=== PATIENT | female | born 1970 | race Caucasian/White ===

== ENCOUNTER 2022-07-24 09:35 | Outpatient (CLI) | payer OTHER, SELFPAY ==
[2022-07-24 18:48] LABS: Basophils Absolute Auto 0.1 K/mm3 (0.0-0.1); Basophils Percent Auto 1.5 % (0.2-1.2); Eosinophils Absolute Auto 0.1 K/mm3 (0-0.3); Hematocrit 43.6 % (37.0-47.0); Hemoglobin 13.7 g/dL (12.0-15.0); Immature Granulocyte Absolute 0.02 K/mm3 (0.00-0.031); Immature Granulocyte Percent A 0.3 % (0-0.5); Lymphocytes Absolute Auto 2.13 K/mm3 (0.9-3.2); Lymphocytes Percent Auto 34.6 % (18.3-44.2); Mean Corpuscular HGB Conc 31.4 g/dl (32-36); Mean Corpuscular Hemoglobin 30.3 pg (26-34); Mean Corpuscular Volume 96.5 fl (80-100); Mean Platelet Volume 11.2 fl (7.4-10.4); Monocytes Absolute Auto 0.6 K/mm3 (0.1-0.6); Monocytes Percent Auto 9.6 % (2.6-8.5); Neutrophils Absolute Auto 3.2 K/mm3 (1.3-6.7); Platelet Count Result 304 k/mm3 (150-375); Red Blood Count 4.52 M/mm3 (4.2-5.4); Red Cell Distribution Width 14.1 % (11.5-14.5); White Blood Count 6.2 K/mm3 (4.5-10.0)
[2022-07-24 18:57] LABS: Alanine Aminotransferase 20 U/L (6-35); Albumin Level 4.7 g/dL (3.5-5.1); Alkaline Phosphatase 57 U/L (38-126); Anion Gap 10 mmol/L (8-16); Aspartate Amino Transferase 64 U/L (14-36); Bilirubin,Total 0.6 mg/dL (0.2-1.3); Blood Urea Nitrogen 13 mg/dL (7-17); Calcium 9.3 mg/dL (8.4-10.2); Carbon Dioxide 30 mmol/L (22-30); Chloride 96 mmol/L (98-107); Cholesterol 136 mg/dL (0-200); Estimated Glomerular Filt Rate > 60; Glucose 88 mg/dL (65-110); HDL Direct 61 mg/dL; Magnesium 1.9 mg/dL (1.6-2.3); Potassium 4.3 mmol/L (3.4-5.0); Sodium 136 mmol/L (137-145); Triglycerides 54 mg/dL (<150)
[2022-07-24 19:08] LABS: LDL Cholesterol Direct 53 mg/dL
[2022-07-24 19:24] LABS: Thyroid Stimulating Hormone Reflex 0.503 uIU/mL (0.465-4.68)
== END 2022-07-24 09:36 | disposition home or self-care (01) ==
LOC: ANHBWCLAB 09:38
PROVIDERS: PCP Family Medicine; Visit Provider Internal Medicine Cardiovascular Disease
DX: E78.5 Hyperlipidemia, unspecified (principal); I10 Essential (primary) hypertension; I25.10 Atherosclerotic heart disease of native coronary artery without angina pectoris; R00.2 Palpitations
CPT/HCPCS: 36415; 80053; 80061; 83735; 84443; 85025

== ENCOUNTER 2024-12-21 08:04 | Outpatient (CLI) | payer BC, SELFPAY ==
--- OUTSIDE RECORDS SUMMARY | 2024-12-21 08:19 | XMS_ITS | Clinical Summary ---
Author Organization [facility] Address [address] [place] [address] Phone Care Team Providers Care Heliotherapist Name Role Phone Jennifer Limon MD Primary Care Provider [phone] Family History Medical History Relation Name Comments Diabetes Father Alzheimer's Disease Mother Heart Disease Mother Cancer Sister x1 Heart Disease Sister x1 Relation Name Status Comments Father Alive Mother Alive Sister x1 Social History Tobacco Use Types Packs/Day Years Used Date Smoking Tobacco: Never Smokeless Tobacco: Never Tobacco Cessation:Counseling Given: Not Answered Alcohol Use Standard Drinks/Week Comments Yes 0 (1 standard drink = 0.6 oz pure alcohol) 7 drinks a week (seltzor) or mixed drinks PHQ-2 Answer Date Recorded Total Score - Questions 1-9 5 11/13 Sexually Active Control Partners Comments Yes Male Comments No Sex and Gender Information Value Date Recorded Sex Assigned at Female 10/20/2023 10:41 AM AFFIRMATIVE ACTION OFFICER Legal Sex Female 12:29 AM CDT Gender Identity Female 10/20/2023 10:41 AM AFFIRMATIVE ACTION OFFICER Sexual Orientation Not on file Plan of Treatment Health Maintenance Due Date Last Done Comments Hepatitis C Virus (HCV) Screening 1969 Hepatitis B Immunization (1 of 3 - 19+ 3-dose series) 1988 Pap Smear 1990 Cervical Cancer Screening (CCS) 1999 HPV/Cotest 1999 Colonoscopy 2014 Colorectal Cancer Screening 2014 Mammogram 09/30/2018 09/30/2017, 0 05/2017, 08/25/2015 Cologuard 2019 Immunochemical Fecal Occult Blood 2019 Pneumococcal Immunization (50+ years) (1 of 1 - PCV) 2019 Zoster Immunization (1 of 2) 2019 Influenza Immunization (#1) 05/16/202406/15, 06/19/2020, 06/27/2018, Additional history exists SARS-COV-2 Immunization ( season) 2024 09/18/2021, 12/18/2020, 11/26/2020 Respiratory Syncytial Virus (RSV) Immunization (Adult) (1 - 1-dose 75+ series) 2044 DTaP/Tdap/Td Immunization Discontinued 2008, 03/03/1979, 02/13/1974, Additional history exists TdaP Immunization Completed 03/15/2009, 03/03/1979 Meningococcal Immunization (ACWY) Aged Out No longer eligible based on patient's age to complete this topic Rotavirus Immunization Aged Out No lo nger eligible based on patient's age to complete this topic Goals Goal Patient Goal Type Associated Problems Recent Progress Patient-Stated? Author I need some boundaries Behavioral Health Yes Lety Cooley, BRICK OFFBEARER Note: Goal/Objective: Chula would like to create some boundaries for herself so she does not give everything of herself away .. Anticipated Time Frame for Goal Completion: 6 months Goal Reviewed with: patient Readiness to change: Ready to change Department associated with goal: [facility] Steps to achieve goal: will identify at least two warning signs self care is being neglected. will identify at least two boundaries that may help to improve opportunities for self-care. will identify at least two ways/skills/habits of self-care believed to have a positive outcome on overall wellbeing. will implement at least two changes (boundaries and/or skills/habits of self- care). Will attend at least 1x monthly, at least 6 individual or group sessions Procedures Procedure Name Priority Date/Time Associated Diagnosis Comments GURPREET SCREENING BILATERAL DIGITAL W CAD Routine 08/25/2015 1:20 PM AFFIRMATIVE ACTION OFFICER Visit for screening mammogram from Last 3 Months or Most Recently Relevant to Health Maintenance Results * GURPREET SCREENING BILATERAL DIGITAL W CAD (08/25/2015 1:20 PM AFFIRMATIVE ACTION OFFICER) Anatomical Region Laterality Modality breast Bilateral Mammography 08/25/2015 12:5 7 PM AFFIRMATIVE ACTION OFFICER Narrative 08/25/2015 4:11 PM AFFIRMATIVE ACTION OFFICER Courtesy copy provided at patient's request. Patient is self-referred. - GURPREET SCREENING BILATERAL DIGITAL W CAD BILATERAL DIGITAL SCREENING MAMMOGRAM WITH CAD WITH MEDIOLATERAL OBLIQUE CRANIOCAUDAL: 08/25/2015 The study was acquired using digital technology and interpreted from soft copy. Current study was also evaluated with ICAD version 7.2. CLINICAL: Routine screening. Patient has no complaints. No personal history of cancer. No family history of breast cancer. COMPARISONS: Comparison is made to exams dated: 08/12/2014, 08/05/2013, and 07/23/2012 [facility]. BREAST TISSUE:The tissue of both breasts is extremely dense, which lowers the sensitivity of mammography. FINDINGS: No significant masses, calcifications, or other findings are seen in either breast. There has been no significant interval change. IMPRESSION: BI-RAD 1 NEGATIVE There is no mammographic evidence of malignancy. A 1 year screening mammogram is recommended. The patient has been or will be contacted. The patient will be entered into an automated reminder system to schedule a mammogram in one year. Electronically signed by: Yahaira Anderson M.D. pw/brandon:08/25/2015 14:55:57 Lease Examiner: Mariel DUNN(Maricel)(Len), [facility] letter sent: Normal Exam Reading location: [facility] BI-RADS: 1 Negative Procedure Note Yahaira Anderson MD - 08/25/2015 Courtesy copy provided at patient's request. Patient is self-referred. - GURPREET SCREENING BILATERAL DIGITAL W CAD BILATERAL DIGITAL SCREENING MAMMOGRAM WITH CAD WITH MEDIOLATERAL OBLIQUE CRANIOCAUDAL: 08/25/2015 The study was acquired using digital technology and interpreted from soft copy. Current study was also evaluated with ICAD version 7.2. CLINICAL: Routine screening. Patient has no complaints. No personal history of cancer. No family history of breast cancer. COMPARISONS: Comparison is made to exams dated: 08/12/2014, 08/05/2013, and 07/23/2012 [facility]. BREAST TISSUE:The tissue of both breasts is extremely dense, which lowers the sensitivity of mammography. FINDINGS: No significant masses, calcifications, or other findings are seen in either breast. There has been no significant interval change. IMPRESSION: BI-RAD 1 NEGATIVE There is no mammographic evidence of malignancy. A 1 year screening mammogram is recommended. The patient has been or will be contacted. The patient will be entered into an automated reminder system to schedule a mammogram in one year. Electronically signed by: Yahaira domínguez/brandon:08/25/2015 14:55:57 Lease Examiner: Mariel DUNN(Maricel)(Len), [facility] letter sent: Normal Exam Reading location: [facility] BI-RADS: 1 Negative Jennifer Limon MD IMG MAMMO ORDERABLES Final Res ult from Last 3 Months or Most Recently Relevant to Health Maintenance Insurance [facility] Care Teams Heliotherapist Relationship Specialty Start Date End Date Jennifer Limon MD [address] [place] [address] PCP - General Internal Medicine 08/14/15
--- OUTSIDE RECORDS SUMMARY | 2024-12-21 08:19 | XMS_ITS | Encounter Summary ---
Author Organization [facility] Healthcare Address [address] [place] [address] Care Team Providers Care Motorized Squad Commanding Officer Name Role Phone Nagi Gonzáles MD Primary Care Provider [phone] Reason for Visit * Reason Onset Date Comments Scheduling Appointments 02/27/2021 confirmi ng mammogram appt- no answer Encounter Details Date Type Department Care Team (Late st Contact Info) Description 02/27/2021 Telephone [facility] [address] [place] [address] [id number] Scheduling Appointments (confirming mammogram appt- no answer) Social History Tobacco Use Types Packs/Day Years Used Date Smoking Tobacco: Never Smokeless Tobacco: Never Alcohol Use Standard Drinks/Week Comments Yes 0 (1 standard drink = 0.6 oz pur e alcohol) PHQ-2 Answer Date Recorded PHQ-2 Total Score (If total score is 3 or more points, staff should administer the PHQ-9) 0 01/03/2021 Comments No Sex and Gender Information Value Date Recorded Sex Assigned at Not on file Legal Sex Female 11:56 PM SEATING UPHOLSTERER Gender Identity Not on file Sexual Orientation Not on file documented as of this encounter Plan of Treatment Not on file documented as of this encounter Visit Diagnoses Not on filedocumented in this encounter Care Teams Motorized Squad Commanding Officer Relationship Specialty Start Date End Date Nagi Gonzáles MD [address] [place] [address] PCP - General 03/04/20 documented as of this encounter
--- OUTSIDE RECORDS SUMMARY | 2024-12-21 08:19 | XMS_ITS | Clinical Summary ---
Author Organization [facility] Address [address] [place] [address] Care Team Providers Care Community Nutrition Educator Name Role Phone Nagi Gonzáles MD Primary Care Provider [phone] Allergies Active Allergy Reactions Criticality Noted Date Comments Sulfa (Sulfonamide Antibiotics) Rash Medium Medications coenzyme Q10 10 mg capsule otc 0 0 6 Active Additional Information Patient not taking.Reported on 06/18/2023 multivitamin capsule take 1 capsule by oral route every day 0 1 Active rosuvastatin (CRESTOR) 20 mg tablet TK 1 T PO QHS 2 9 Active rimegepant (NURTEC ODT) tablet,disinteg rating Take 1 tablet (75 mg total) by mouth daily as needed (migraine) 10 tablet 11 2 Active Additional Information Patient not taking.Reported on 06/18/2023 hydrOXYzine (ATARAX) 25 mg tablet TAKE 1 TABLET(25 MG) BY MOUTH EVERY 6 HOURS NEEDED FOR ITCHING 30 tablet 2 Active Additional Information Patient not taking.Reported on 06/18/2023 carvediloL (COREG) 6.25 mg tablet Take 1 tablet (6.25 mg total) by mouth 2 (two) times a day with meals 3 Active neomycin-polymy mesha-gramicidin (NEOSPORIN) ophthalmic solution Administer 2 drops into both eyes 4 (four) times a day 10 mL [address] (CYMBALTA) 60 mg capsule TAKE 1 CAPSULE(60 MG) BY MOUTH DAILY 90 capsule 3 4 Active amoxicillin (AMOXIL) 875 mg tablet Take 1 tablet (875 mg total) by mouth 2 (two) times a day 20 tablet 4 Active Active Problems Problem Noted Date Diagnosed Date Migraine without aura and wi thout status migrainosus, not intractable 03/23/2018 Insomnia 01/29/2014 Overview (12/20/2016): Insomnia Ventricular premature beats 08/01/2013 Overview (12/18/2016): PVC (premature ventricular contraction) Mitral valve prolapse 08/01/2013 Overview (12/20/2016): Mitral valve prolapse Encounters Date Type Department Care Team Description 12/06/2024 Telephone [employer] 4 [facility] [address] [place] [id number] Mariel Sands MD from Last 3 Months Immunizations Immunization Administration Dates Next Due DTP 02/13/1974, 1,1969,09/15,1969 Influenza, Quadrivalent, Linn l Culture-based MDCK, Preservative Free, Antibiotic Free, Intramuscular 06/28/2018 Influenza, Quadrivalent, Spl it, Intramuscular 08/15/2015 Influenza, Quadrivalent, Spl it, Preservative Free, Intradermal 07/20/2016 Influenza, Quadrivalent, Spl it, Preservative Free, Intramuscular 08/15/2017,07/19/2016 Influenza, Trivalent, IM (MDV) 06/18/2014,2012 Influenza, Trivalent, Preser vative Free, Intramuscular 09/05/2015 Influenza, Unspecified 02/26/2023(Deferr ed: Patient Refused),05/16/2022(Deferred: Patient Refused),01/03/2021(Deferred: Patient Refused),09/15/2019(Deferred: Patient Refused),06/27/2018 MMR 09/22/2001,09/22/2001 Measles 03/15/1972 Mumps 11/13/1970 OPV 04/18/1980, 4,03/15/1971,02/13,1969 Rubella 05/16/1970 Tdap 03/15/2009,03/15/2009,03/03/1979 Surgical History Surgery Date Site/Laterality Comments SECTION 09/15/2007 - 09/14/2008 OTHER SURGICAL HISTORY er heart flutters panic attack Medical History Medical History Date Comments Depression Depression Headache Headaches; Comme nts: Tension Intractable chronic migraine without aura and without status migrainosus Intractable chroni c migraine without aura and without status migrainosus - (Added by TW Conv) CAD (coronary artery disease) Family History Medical History Relation Name Comments Diabetes Father Diabetes mellit us; Alzheimer's disease Mother Heart attack Mother myocardial infa rction; Sleep apnea Mother Other Sister 2 Alive and well; Relation Name Status Comments Father Mother Alive Sister 1 Alive Sister 2 Social History Tobacco Use Types Packs/Day Years Used Date Smoking Tobacco: Never Smokeless Tobacco: Never Tobacco Cessation:Counseling Given: Not Answered Alcohol Use Standard Drinks/Week Comments Yes 0 (1 standard drink = 0.6 oz pur e alcohol) Humiliation, Afraid, Rape, and Kick questionnair e Answer Date Recorded Within the last year, have y ou been afraid of your partner or ex-partner? No 01/29/2023 Within the last year, have y ou been humiliated or emotionally abused in other ways by your partner or ex-partner? No Within the last year, have y ou been kicked, hit, slapped, or otherwise physically hurt by your partner or ex-partner? No 01/29/2023 Within the last year, have y ou been raped or forced to have any kind of sexual activity by your partner or ex-partner? No 01/29/2023 Social Connection and Isolat ion Panel [NHANES] Answer Date Recorded In a typical week, how many times do you talk on the phone with family, friends, or neighbors? More than three times a week 01/29/2023 How often do you get togethe r with friends or relatives? More than three times a week 01/29/2023 How often do you attend [facility] or anabaptist services? Never 01/29/2023 Do you belong to any clubs o r organizations such as zoroastrian groups, unions, fraternal or athletic groups, or school groups? Yes 01/29/2023 How often do you attend meet ings of the clubs or organizations you belong to? More than 4 times per year 01/29/2023 Are you , , di vorced, , never , or living with a partner? 01/29/2023 AUDIT-C Answer Date Recorded Q1: How often do you have a drink containing alc ohol? 2-4 times a month 01/29/2023 Q2: How many drinks containi ng alcohol do you have on a typical day when you are drinking? 1 or 2 01/29/2023 Q3: How often do you have si x or more drinks on one occasion? Never 01/29/2023 Overall Financial Resource Strain (CARDIA) Answe r Date Recorded How hard is it for you to pa y for the very basics like food, housing, medical care, and heating? Not hard at all 01/29/2023 PHQ-2 Answer Date Recorded PHQ-2 Total Score (If total score is 3 or more points, staff should administer the PHQ-9) 0 01/29/2023 [facility] - Occupational Stress Questionnaire Answer Date Recorded Do you feel stress - tense, restless, nervous, or anxious, or unable to sleep at night because your mind is troubled all the time - these days? To some extent 01/29/2023 Exercise Vital Sign Answer Date Recorde d On average, how many days pe r week do you engage in moderate to strenuous exercise (like a brisk walk)? 3 days 01/29/2023 On average, how many minutes do you engage in exercise at this level? 90 min 01/29/2023 Hunger Vital Sign Answer Date Recorded Within the past 12 months, y ou worried that your food would run out before you got the money to buy more. Never true 01/30/20 23 Within the past 12 months, t he food you bought just didn't last and you didn't have money to get more. Never true 01/29/2023 PRAPARE - Transportation Answer Date Re corded In the past 12 months, has l ack of transportation kept you from medical appointments or from getting medications? No 01/13 In the past 12 months, has l ack of transportation kept you from meetings, work, or from getting things needed for daily living? No 01/29/2023 Housing Stability Vital Sign Answer Kishore e Recorded In the last 12 months, was t here a time when you were not able to pay the mortgage or rent on time? No 01/29/2023 In the last 12 months, how many places have you lived? 1 01/29/2023 In the last 12 months, was t here a time when you did not have a steady place to sleep or slept in a senior care (including now)? No 01/29/2023 Comments No Sex and Gender Information Value Date Recorded Sex Assigned at Not on file Legal Sex Female 11:56 PM DRY CANS OPERATOR Gender Identity Not on file Sexual Orientation Not on file Obstetrics History Para Term AB IAB SAB Ectopic Multiple Livin g Live Births 1 1 1 Date Outcome GA Total Labor Labor/2nd/3rd Weight Sex Type Anes PTL Yola A1 A5 Name Clin Term Last Filed Vital Signs Vital Sign Reading Time Taken Comments Blood Pressure 154/83 06/18/2023 8:37 AM CDT Pulse 121 06/18/2023 8:37 AM CDT Temperature 36.9 C (98.4 F) 06/18/2023 8:37 AM CDT Respiratory Rate 18 01/29/2023 11:40 AM CDT Oxygen Saturation 97% 06/18/2023 8:37 AM CDT Inhaled Oxygen Concentration - - Weight 59.9 kg (132 lb) 06/18/2023 8:37 AM CDT Height 162.6 cm (5' 4 ) 06/18/2023 8:37 AM CDT Body Mass Index 22.66 06/18/2023 8:37 AM CDT Plan of Treatment Health Maintenance Due Date Last Done Comments Cervical Cancer Screening 1969 Colon Cancer Screening-Colonoscopy 1969 Hepatitis C Screening 1969 Hepatitis B Screening 1987 Regular Well Visit/Exam 18-64 1987 Breast Cancer Screening-Mammogram 09/30/2018 09/30/2017, 09/23/2016 DTaP/Tdap/Td Vaccine (8 - Td or Tdap) 03/15/2019 03/15/2009, 03/15/2009, 03/03/1979, Additional history exists Zoster Vaccine (1 of 2) 2019 Depression Screening 01/30/2024 01/29/2023, 01/29/2023, 01/03/2021 Influenza Vaccine (#1) 2024 8, 06/27/2018, 08/15/2017, Additional history exists Pneumococcal vaccine <65 Aged Out No longer eligible based on patient's age to complete this topic Procedures Procedure Name Priority Date/Time Associated Diagnosis Comments SCREENING MAMMOGRAM BILATERAL W MARIAM Schedule Routine, Read Routine (OP Routine) 09/30/2017 5:17 PM DRY CANS OPERATOR Screening breast examination from Last 3 Months or Most Recently Relevant to Health Maintenance Results * Screening Mammogram Bilateral W Mariam (09/30/2017 5:17 PM DRY CANS OPERATOR) Anatomical Region Laterality Modality Breast Bilateral Mammography Impressions 10/01/2017 7:05 AM DRY CANS OPERATOR 1. NO DEFINITIVE MAMMOGRAPHIC EVIDENCE OF MALIGNANCY 2. ANNUAL FOLLOW-UP RECOMMENDED BI-RADS 1 Electronically signed by: Babar aMrin M.D. Narrative 10/01/2017 7:05 AM DRY CANS OPERATOR SCREENING MAMMOGRAM BILATERAL W MARIAM HISTORY: Encounter for screening mammogram for malignant neoplasm of breast TECHNIQUE: 3 views of each breast were obtained with bilateral breast tomosynthesis. COMPARISON: 09/23/2016 FINDINGS: The breasts are heterogeneously dense. No suspicious mass or calcification is seen to suggest mammographic evidence of malignancy. Digital technology was employed plus computer aided detection software (R2) was utilized in interpretation of these images. This facility utilizes a reminder system to notify patient's of yearly mammograms. Procedure Note Babar Marin MD / Provider, MD Tete - 10/01/2017 SCREENING MAMMOGRAM BILATERAL W MARIAM HISTORY: Encounter for screening mammogram for malignant neoplasm of breast TECHNIQUE: 3 views of each breast were obtained with bilateral breast tomosynthesis. COMPARISON: 09/23/2016 FINDINGS: The breasts are heterogeneously dense. No suspicious mass or calcification is seen to suggest mammographic evidence of malignancy. Digital technology was employed plus computer aided detection software (R2) was utilized in interpretation of these images. This facility utilizes a reminder system to notify patient's of yearly mammograms. IMPRESSION: 1. NO DEFINITIVE MAMMOGRAPHIC EVIDENCE OF MALIGNANCY 2. ANNUAL FOLLOW-UP RECOMMENDED BI-RADS 1 Electronically signed by: Babar Marin M.D. Nahomy Mcmanus MD IMG MAMMO PROCEDURES Fin al Result from Last 3 Months or Most Recently Relevant to Health Maintenance Insurance [place] [address] [id number] [place] [address] [employer] Care Teams Community Nutrition Educator Relationship Specialty Start Date End Date Nagi Gonzáles MD [address] [place] [address] PCP - General 03/04/20
--- OUTSIDE RECORDS SUMMARY | 2024-12-21 08:19 | XMS_ITS | Referral Summary ---
Author Organization [facility] Address [address] [place] [address] Care Team Providers Care Clinic Business Manager Name Role Phone Nagi Gonzáles MD Primary Care Provider [phone] Encounters Date Type Department Care Team Description 12/06/2024 Telephone [facility] 4 [facility] [address] [place] [address] Mariel Sands MD from Last 3 Months Allergies Active Allergy Reactions Criticality Noted Date [...] prolapse 08/01/2013 Overview (12/20/2016): Mitral valve prolapse Immunizations Immunization Administration Dates Next Due DTP [...] OPV 04/18/1980, 4,03/15/1971,02/13,1969 Rubella 05/16/1970 Tdap 03/15/2009,03/15/2009,03/03/1979 Social History Tobacco Use Types Packs/Day Years [...] week 01/29/2023 How often do you attend chur or confucianist services? Never 01/29/2023 Do you belong to any clubs o r organizations such as religion groups, unions, fraternal or athletic groups, or [...] staff should administer the PHQ-9) 0 [facility]/29/[address] [facility] - Occupational Stress Questionnaire Answer Date Recorded [...] place to sleep or slept in a custodial (including now)? No 01/29/2023 Comments No Sex and Gender Information Value Date Recorded Sex Assigned at Not on file Legal Sex Female 11:56 PM ENAMEL PULVERIZER Gender Identity Not on file Sexual Orientation Not on file Last Filed Vital Signs Vital Sign Reading [...] 06/18/2023 8:37 AM CDT Plan of Treatment Not on file Procedures Procedure Name Priority Date/Time Associated Diagnosis Comments SCREENING MAMMOGRAM BILATERAL W MARIAM Schedule Routine, Read Routine (OP Routine) 09/30/2017 5:17 PM ENAMEL PULVERIZER Screening breast examination from Last 3 Months or Most Recently Relevant to Health Maintenance Results * Screening Mammogram Bilateral W Mariam (09/30/2017 5:17 PM ENAMEL PULVERIZER) Anatomical Region Laterality Modality Breast Bilateral Mammography Impressions 10/01/2017 7:05 AM ENAMEL PULVERIZER 1. NO DEFINITIVE MAMMOGRAPHIC EVIDENCE OF MALIGNANCY 2. ANNUAL FOLLOW-UP RECOMMENDED BI-RADS 1 Electronically signed by: Babar Marin M.D. Narrative 10/01/2017 7:05 AM ENAMEL PULVERIZER SCREENING MAMMOGRAM BILATERAL W MARIAM HISTORY: Encounter [...] Most Recently Relevant to Health Maintenance Insurance [facility] [id number] [place] [address] [facility] Care Teams Clinic Business Manager Relationship Specialty Start Date End Date Nagi Gonzáles MD [address] [place] [address] PCP - General 03/04/20
--- OUTSIDE RECORDS SUMMARY | 2024-12-21 08:20 | XMS_ITS | Clinical Summary ---
Author Organization [email or web address] Address [address] [place] [address] Care Team Providers Care Textile Screen Printer Name Role Phone Jennifer Limon MD Primary Care Provider [phone] Source Comments [email or web address],non-owned Affiliates and Associated Physician Practices is amultiple site organization consisting of ambulatory clinics and hospital sitesin [place], [place], [place] and [place]. This disclosure is being madepursuant to the Care Everywhere program and may not contain all information available regarding this patient. Last updated [email or web address] Allergies Active Allergy Reactions Criticality Noted Date Comments Sulfa Drugs Other Medium 08/18/2017 Unknown reaction as child Medications * Be aware that medications may not be up to date on this document. Alwaysverify current medications with the patient. 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 Respiratory Rate - - Oxygen Saturation 98% 10/29/2017 2:23 PM 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 Inhaled Oxygen Concentration - - Weight 63.5 kg (140 lb) 10/29/2017 2:23 PM 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 Height 167.6 cm (5' 6 ) 10/29/2017 2:23 PM 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 Body Mass Index 22.6 10/29/2017 2:23 PM 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 Plan of Treatment Health Maintenance Due Date Last Done Comments COLOGUARD (AGES 45-75) - COL ON CA SCREENING 1969 COLON MONITORING 1969 COLONOSCOPY - COLON CA SCREENING 1969 CT COLONOGRAPHY - COLON CA SCREENING 1969 Colorectal Cancer Screening 1969 FIT - COLON CA SCREENING 1969 FLEX SIG - COLON CA SCREENING 1969 MAMMOGRAM 1969 PAP SMEAR 1969 HIV SCREENING 1984 HEPATITIS C SCREENING 05/23/1987 DTAP/TDAP/TD VACCINES (1 - Tdap) 1988 HEPATITIS B VACCINE (1 of 3 - 19+ 3-dose series) 1988 PNEUMOCOCCAL VACCINE 50+ (1 of 1 - PCV) 2019 ZOSTER VACCINE (1 of 2) 2019 COVID-19 VACCINE (1 - 2023-2 5 season) 2024 DEPRESSION SCREENING 09/15/2024 INFLUENZA VACCINE (Season Ended) 2025 HIB VACCINE Aged Out No longer eligi ble based on patient's age to complete this topic HPV VACCINE Aged Out No longer eligi ble based on patient's age to complete this topic MENINGOCOCCAL (Group B) VACC INE SHARED DECISION-MAKING Aged Out No longer eligibl e based on patient's age to complete this topic MENINGOCOCCAL GROUPS A/C/Y/W VACCINE Aged Out No longer eligible b ased on patient's age to complete this topic PNEUMOCOCCAL VACCINE Aged Out No long er eligible based on patient's age to complete this topic Care Teams Textile Screen Printer Relationship Specialty Start Date End Date Jennifer Limon MD PCP - General Internal Medicine 08/18/17
[2024-12-21 19:05] LABS: Basophils Absolute Auto 0.1 K/mm3 (0.0-0.1); Basophils Percent Auto 1.4 % (0.2-1.2); Eosinophils Absolute Auto 0.1 K/mm3 (0-0.3); Eosinophils Percent Auto 2.1 % (0-4.4); Hematocrit 43.3 % (37.0-47.0); Immature Granulocyte Absolute 0.01 K/mm3 (0.00-0.031); Immature Granulocyte Percent A 0.2 % (0-0.5); Lymphocytes Absolute Auto 1.87 K/mm3 (0.9-3.2); Lymphocytes Percent Auto 33.3 % (18.3-44.2); Mean Corpuscular Hemoglobin 30.1 pg (26-34); Mean Corpuscular Volume 100.2 fl (80-100); Mean Platelet Volume 10.8 fl (7.4-10.4); Monocytes Absolute Auto 0.4 K/mm3 (0.1-0.6); Monocytes Percent Auto 7.5 % (2.6-8.5); Neutrophils Absolute Auto 3.1 K/mm3 (1.3-6.7); Neutrophils Percent Auto 55.5 % (45.5-73.1); Platelet Count Result 293 k/mm3 (150-375); Red Blood Count 4.32 M/mm3 (4.2-5.4); Red Cell Distribution Width 14.3 % (11.5-14.5); White Blood Count 5.6 K/mm3 (4.5-10.0)
[2024-12-21 19:42] LABS: Alanine Aminotransferase 20 U/L (6-35); Anion Gap 7 mmol/L (4-12); Blood Urea Nitrogen 15 mg/dL (7-17); Calcium 8.9 mg/dL (8.4-10.2); Carbon Dioxide 32 mmol/L (22-30); Chloride 103 mmol/L (98-107); Cholesterol 153 mg/dL (0-200); Creatine Kinase 108 U/L (30-135); Estimated Glomerular Filt Rate > 60; Glucose 95 mg/dL (65-110); HDL Direct 84 mg/dL; Potassium 4.5 mmol/L (3.4-5.0); Sodium 142 mmol/L (137-145); Triglycerides 64 mg/dL (<150)
[2024-12-21 19:52] LABS: LDL Cholesterol Direct 51 mg/dL
== END 2024-12-21 08:05 | disposition home or self-care (01) ==
PROVIDERS: PCP Family Medicine
DX: E78.5 Hyperlipidemia, unspecified (principal); I10 Essential (primary) hypertension; I25.10 Atherosclerotic heart disease of native coronary artery without angina pectoris; I34.1 Nonrheumatic mitral (valve) prolapse
CPT/HCPCS: 36415; 80048; 80061; 82550; 83695; 84460; 85025